=== PATIENT | male | born 1965 | race Caucasian/White ===

== ENCOUNTER 2020-03-10 05:56 | Emergency (ER) | payer OTHER ==
[2020-03-10] MEDS ORDERED: EPINEPHrine 1 MG/10 ML Abboject SYRINGE ONE (09:25)
[2020-03-10] MEDS ORDERED: Dextrose 50% Abboject 50 ML SYRINGE ONE (09:25)
[2020-03-10] MEDS ORDERED: Calcium Chloride 1 GM/10 ML Abboject SYRINGE ONE (09:25)
== END 2020-03-10 06:04 | disposition expired ==
LOC: ERS 05:56 → EDBD 05:56 → ERS 06:04
DX: I46.9 Cardiac arrest, cause unspecified (principal)
CPT/HCPCS: 87635; 92950; 96374; 96375; J0171; U0003